=== PATIENT | male | born 1950 | race Caucasian/White ===

== ENCOUNTER → 2019-11-14 09:24 | Outpatient (CLI) | payer MEDICARE, SELFPAY ==
[2019-11-16 09:26] LABS: COVID19 Sendout Not Detected (Not Detect)
== END ==
PROVIDERS: Visit Provider Nurse Practitioner
DX: Z11.59 Encounter for screening for other viral diseases (principal)
CPT/HCPCS: 87635

== ENCOUNTER 2019-11-17 08:07 | Day surgery (SDC) | payer MEDICARE, SELFPAY ==
[2019-11-13 08:01] VITALS: BMI 28.6
[2019-11-17] VITALS (9 sets, daily range): BP systolic 135–163; BP diastolic 69–98; PULSE 69–94; RESP 11–24; TEMP 36.1–36.8; O2SAT 93–97; BMI 28.4
--- NOTE | 2019-11-17 | PATH_ITS ---
[facility] Accession Number: [id number] . 01 Material submitted: . back - T-9 BIOPSY . 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 Maturing trilineage hematopoiesis without increased blasts, or abnormal lymphoid infiltrates. Negative for carcinoma. Associated fibrosis and changes secondary to fracture also present. . [facility] 11/24/2019 1751 Local . 01 Comment: Recent workup (serum protein electrophoresis, urine protein electrophoresis and immunofixation) identified an IgG-kappa monoclonal paraprotein. Examination of the marrow on this bone biopsy reveals increased plasma cells, approximately 20%, with [place] light chain immunoglobulin excess and abnormal CD56 antigen coexpression; findings suspicious for plasma cell neoplasm. . Further workup is recommended and correlation with imaging studies and additional laboratory studies for definite diagnosis. . 01 Electronically signed: . Chidi Beckham MD, Pathologist NPI- [id number] . 01 Gross description: . T-9 BIOPSY: Received in formalin are 2 fragment(s) of romano, hard tissue measuring 1.0 x 0.3 x 0.3 cm to 0.5 x 0.3 x 0.3 cm submitted entirely in 1 cassette(s) /QBJ 11/18/2019 0854 Local . 01 Microscopic: . Microscopic examination of the biopsy reveals increased plasma cells with mature morphology, abundant cytoplasm and indistinct nucleolus. Rare binucleate plasma cells are also seen. To better evaluate those plasma cells and more accurately quantitate, immunostains were performed (see below immunohistochemistry). There is maturing trilineage hematopoiesis with granulocytes, erythroids and megakaryocytes present. Distinct lymphoid aggregates in interstitial and paratrabecular location are not appreciated, see below immunohistochemistry. . Blasts are not increased. . Background fibrosis and changes secondary to fracture also present. . . Immunohistochemistry: . CD138: Plasma cells positive, increased, approximately 20%. [place] Light Chain Immunostain: Plasma cells show kappa light chain excess, however, due to dense background staining, unequivocal kappa light chain restriction is not definetely seen. Lambda Light Chain Immunostain: Rare plasma cells positive (the predominant plasma cell population is negative). CD56: Plasma cells show abnormal CD56 coexpression. CD3: A few scattered T-lymphocytes positive. CD20: Rare scattered B-lymphocytes positive. JACINTO: Negative (nonspecific staining on rare crushed cells, overall interpreted as negative). . . * This test was developed and its performance characteristics determined by [facility]. It has not been cleared or approved by the U.S. Food and Drug Administration. The FDA has determined that such clearance or approval is not necessary. This test is used for clinical purposes. It should not be regarded as investigational or for research. . 01 Pathologist provided ICD-10: D47.2, R77.1, S32.000D, S22.000D . 01 CPT . 070493, G21954, L81104 Performed at: 01 [facility] [address] [place] [address] Suite [facility], [place], [place] [id number] MD Dominick Oliva MD Phone: [phone]
[2019-11-17] MEDS: LACTATED RINGERS 1,000 ML 42 ML IV (09:21)
--- NOTE | 2019-11-17 09:28 | PM.PREOP ---
Pre-operative Note COVID-19 COVID-19 status: Negative Result date/Date tested (Pos, Neg/Pending): 11/14/19 Interval Note History & Physical reviewed/Exam performed by Physician: Yes Changes to H&P: No
--- NOTE | 2019-11-17 10:00 | DI.RAD.S_ITS ---
PROCEDURE: XR THORACIC SPINE 3V INDICATIONS: Kyphoplasty TECHNIQUE: 12 views of the thoracic spine were acquired. COMPARISON: SNO Outside Film, MR, MR SPINE, 10/29/2019, 15:16. SNO Outside Film, CR, XR THORACIC SPINE 2 VIEWS, 10/21/2019, 8:56. SNO Outside Film, CR, XR LUMBAR SPINE 2 OR 3 VIEWS, 10/21/2019, 8:58. FINDINGS: A series of intraoperative fluoroscopy semi images demonstrate kyphoplasty in lower thoracic spine (? T9. Not labeled on images). IMPRESSION: Intraoperative fluoroscopy for kyphoplasty. Dictated by: Sandhya Viera M.D. on 11/17/2019 at 15:29 Approved by: Sandhya Viera M.D. on 11/17/2019 at 15:36
[2019-11-17] MEDS: CEFAZOLIN 2 GM/100 ML FROZ.PIGGY IV (10:04)
--- NOTE | 2019-11-17 11:17 | PM.OP.1 ---
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 He was felt that he would benefit from surgery with tumor ablation and kyphoplasty for the fracture stability. He wished to proceed. Risks and benefits of surgery were discussed and appropriate consents were obtained. Surgeon: Rio Queen Click Yes if Unassisted: Yes Anesthesia Type: General Operative Notes Findings: None Closure Type: primary Specimen(s): other (T9 vertebral biopsy) Estimated Blood Loss (mL): 5 Blood products transfused: none Procedure in detail: The patient was brought to the operating room and intubated on the table. They were then rolled over to the well-padded prone position. Time-out was performed. We confirmed positioning with two fluoroscopy views. The back was prepped and draped in the standard sterile fashion. Preoperative antibiotics were given. Using fluoroscopic guidance, the planned incision sites were infiltrated with Marcaine with epinephrine and injected down to the entry site of the bilateral pedicles of T9. A small stab incision was made and we advanced a Jamshiedi needle down the left pedicle into the vertebral body. We then made a small stab incision on the right and advanced a Jamshidi needle down the right pedicle of T9. Bone biopsies were harvested from both sides and sent to pathology. We then passed the DFine osteotome and opened it up to create a void inside the vertebral body. We then began the tumor ablation. The radiofrequency probes were placed down both pedicles to the anterior aspect and then extended forward. We then began the radiofrequency ablation until both sides reached 50? C. once this was done we then began injecting the cement. This was done with frequent fluoroscopy imaging. Cement started working posteriorly along a tract and we stopped injecting. We let this solidify for 4 minutes and then injected more cement around this area with no further posterior movement. Once we had good fill of the T9 vertebral body the injection was stopped and the trocars were removed. Final x-rays were taken. The wound was cleaned. Steri-Strips and sterile dressing were placed. Patient was rolled over, extubated, and brought to recovery without complications. Complications: none Post-operative Condition: stable Disposition: PACU Plan for aftercare: Outpatient. Activity as tolerated. Awaiting bone biopsy results and getting the patient into Oncology.
[2019-11-17] MEDS: OXYCODONE/ACETAMINOPHEN 5/325 TABLET 1 TAB PO (11:30)
--- NOTE | 2019-11-17 11:33 | SUR.OPER ---
Prone on spine table, head in foam head support, padded chest support, gel pad at knees, lower legs supported by pillows; nipples, genitalia and toes free of pressure, arms secured on gel padded arm boards at <90 degrees abduction. Tape over blanket at thigh secured to table.
[2019-11-17] MEDS: fentaNYL 100 MCG/2 ML INJ IV ×2 (11:35→11:40)
[2019-11-17] MEDS: BUPIVACAINE 0.25% W/ EPI 30 ML VIAL 60 ML INJ (11:59)
--- NOTE | 2019-11-17 12:58 | SUR.PHASEII ---
1230: Pt ready to go, ride called can not be here till after 1:00pm pt dressed and ready to go.
--- NOTE | 2019-11-17 14:53 | SUR.PHASEII ---
Late entry: friend showed up, pt left when he arrived, left in stable condition.
== END 2019-11-17 12:19 | disposition home or self-care (01) ==
PROVIDERS: PCP Nurse Practitioner; Referring Provider Nurse Practitioner; Visit Provider Orthopaedic Surgery
PROC: (CPT 22513; principal; 2019-11-17 10:15)
DX: S22.070A Wedge compression fracture of T9-T10 vertebra, initial encounter for closed fracture (principal); C79.52 Secondary malignant neoplasm of bone marrow; E11.9 Type 2 diabetes mellitus without complications; M54.9 Dorsalgia, unspecified; D47.2 Monoclonal gammopathy; R77.1 Abnormality of globulin
CPT/HCPCS: 22513; 20982; 72074; 76000; C1776; J0690; J1100; J2405; J2704; J3010

== ENCOUNTER 2023-05-20 14:03 | Emergency (ER) | payer MEDICARE, SELFPAY ==
[2023-05-20 14:10] VITALS: BP 174/85; PULSE 56; RESP 22; TEMP 36.3; O2SAT 97; BMI 24.3
--- NOTE | 2023-05-20 14:20 | PC.NURSE ---
patient's ride is [phone] [facility]
[2023-05-20 14:46] LABS: Alanine Aminotransferase 48 IU/L (<50); Albumin 3.8 g/dL (3.5-5.0); Albumin Globulin Ratio 1.1 (1.0-2.8); Alkaline Phosphatase 77 U/L (38-126); Aspartate Aminotransferase 49 IU/L (17-59); BUN Creatinine Ratio 14.8 (6-22); Bilirubin Total 0.5 mg/dL (0.2-1.3); Blood Urea Nitrogen 12 mg/dL (9-20); Calcium 8.9 mg/dL (8.4-10.2); Carbon Dioxide 28 mmol/L (22-32); Chloride 107 mmol/L (98-107); Estimated Glomerular Filt Rate > 60 mL/min (>60); Globulin 3.5 g/dL (1.7-4.1); Glucose 130 mg/dL (80-110); HEMOLYSIS < 15 (0-50); Lipase 66 U/L (23-300); Potassium 2.9 mmol/L (3.4-5.1); Sodium 141 mmol/L (137-145); Total Protein 7.3 g/dL (6.3-8.2)
[2023-05-20 15:08] LABS: Add Manual Diff / Slide Review NO; Basophils Absolute Auto 100 /uL (0-100); Basophils Percent Auto 1.1 % (0-2); Eosinophils Absolute Auto 200 /uL (0-450); Hematocrit 31.3 % (41-53); Hemoglobin 10.1 g/dL (13.5-17.5); Lymphocytes Absolute Auto 600 /uL (1100-4500); Lymphocytes Percent Auto 7.7 % (25-40); Mean Corpuscular HGB Conc 32.1 % (30-36); Mean Corpuscular Hemoglobin 27.3 PG (26-34); Mean Corpuscular Volume 84.8 fL (80-100); Monocytes Absolute Auto 900 /uL (0-900); Monocytes Percent Auto 11.1 % (3-14); Neutrophils Absolute Auto 6000 /uL (1500-7000); Neutrophils Percent Auto 77.1 % (50-75); Platelet Count 287 X10^3/uL (150-400); Red Blood Cell Count 3.69 X10^6/uL (4.5-5.9); Red Cell Distribution Width 16.9 % (11.6-14.8); White Blood Cell Count 7.7 X10^3/uL (4.5-11.0)
--- NOTE | 2023-05-20 15:23 | DI.CT.S_ITS ---
PROCEDURE: CT ABDOMEN PELVIS W CON INDICATIONS: flank pain with mulitple myleoma TECHNIQUE: After the administration of intravenous contrast, axial sections acquired from the lung bases to the pubic symphysis. Coronal and sagittal reformats were performed. For radiation dose reduction, the following was used: automated exposure control, adjustment of mA and/or kV according to patient size. COMPARISON: None. FINDINGS: Image quality: Diagnostic. Lower Chest: No significant findings. ABDOMEN: Liver: No solid mass. Gallbladder: Cholelithiasis without CT evidence of acute cholecystitis. Biliary ducts: No biliary dilation. Pancreas: No ductal dilation. Spleen: Size is within normal limits. Adrenal Glands: No adrenal nodules. Kidneys and Ureters: Obstructing 5 mm stone at the right ureterovesicular junction resulting in mild hydroureter and moderate hydronephrosis. There is a delayed right nephrogram. Significant perinephric stranding. Left kidney is normal in appearance. Stomach and Bowel: Moderate hiatal hernia. Normal colonic caliber, without significant wall thickening. Diverticulosis without evidence of acute diverticulitis. Peritoneum: No abnormal intraperitoneal fluid. No free air. Ventral Wall: No significant ventral hernia. Abdominal Nodes: No retroperitoneal or mesenteric adenopathy by size criteria. Vessels: Aorta and inferior vena cava are normal in size. Atherosclerotic vascular calcifications. PELVIS: Pelvic Organs: Unremarkable. Bladder: No bladder wall thickening, accounting for underdistention. Pelvic Nodes: No enlarged lymph nodes. Miscellaneous: Small bilateral fat containing inguinal hernias are seen. Bones: No aggressive osseous abnormality. Status post T9 vertebroplasty. Severe compression deformity of T10. Moderate compression deformities of L3 and L4. Diffusely decreased osseous mineralization. Multilevel degenerative changes of the spine. IMPRESSION: 1. Obstructing 5 mm stone at the right ureterovesicular junction. There is mild upstream hydroureter and moderate right hydronephrosis. Delayed right nephrogram with perinephric stranding. Recommend urinalysis to exclude infection. 2. Diverticulosis without evidence of acute diverticulitis. 3. Cholelithiasis without evidence of acute cholecystitis. 4. Multilevel degenerative changes of the spine with diffusely decreased osseous mineralization. Multiple vertebral body compression deformities as above which are likely chronic in etiology. Dictated by: Jesús Owens M.D. on 05/20/2023 at 16:23 Approved by: Jesús Owens M.D. on 05/20/2023 at 16:28
[2023-05-20 15:30] VITALS: BP 166/76; PULSE 67; RESP 18; O2SAT 95
--- NOTE | 2023-05-20 15:33 | PC.NURSE ---
Right flank pain since this morning with dribbling while peeing. Bladder scan shows 0ml urine in bladder. Moaning in bed due to pain. Patient denies history of kidney stones. he reports history of multiple myeloma with tumors on spine.
[2023-05-20] MEDS: MORPHINE 2 MG/ML INJ IV (15:40)
[2023-05-20] MEDS: ONDANSETRON 4 MG/2 ML INJ IV (15:40)
[2023-05-20 16:35] VITALS: BP 147/66; PULSE 61; RESP 16; O2SAT 97
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
[2023-05-20 17:10] VITALS: BP 149/77; PULSE 66; RESP 17; O2SAT 98
--- NOTE | 2023-05-20 17:35 | PC.NURSE ---
1700 Patient refuses to receive IV fluids and does not want to try to provide a urine specimen at this time. Dr. Mitchell aware. Patient does not want Oral pain medication either. he states he wants to go home and speak to his PCP tomorrow. He is aware of our desire to obtain a UA to rule out infection and continues refusal.
== END 2023-05-20 17:27 | disposition home or self-care (01) ==
PROVIDERS: Emergency Provider Emergency Medicine; PCP Nurse Practitioner
DX: N20.0 Calculus of kidney (principal)
CPT/HCPCS: 36415; 51798; 74177; 80053; 83690; 85025; 96374; 96375; 99284; J2270; J2405; Q9967

== ENCOUNTER 2024-05-11 08:10 | Emergency (ER) | payer MEDICARE, SELFPAY ==
[2024-05-11] VITALS (10 sets, daily range): BP systolic 151–180; BP diastolic 72–81; PULSE 82–90; RESP 16–31; TEMP 37.2; O2SAT 96–100; BMI 27.3
--- NOTE | 2024-05-11 08:35 | DI.RAD.S_ITS ---
PROCEDURE: XR CHEST 1V INDICATIONS: cough, sob, r/o pna TECHNIQUE: One view of the chest was acquired. COMPARISON: None. FINDINGS: Surgical changes and devices: None. Lungs and pleura: Lungs are clear. No pleural effusions or pneumothorax. Mediastinum: Mediastinal contours appear normal. Heart size is normal. Bones and chest wall: No suspicious bony lesions. Overlying soft tissues appear unremarkable. Healing bilateral rib fractures. IMPRESSION: No acute cardiopulmonary abnormality is seen. Dictated by: Toby Oliveira M.D. on 05/11/2024 at 8:45 Approved by: Toby Oliveira M.D. on 05/11/2024 at 8:45
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
--- NOTE | 2024-05-11 08:53 | DI.CT.S_ITS ---
PROCEDURE: CT ANGIO ABD/PEL GI BLEED INDICATIONS: Shortness of Breath/Dyspnea TECHNIQUE: After the administration of intravenous contrast, 2.5 mm thick sections acquired from the diaphragm to the symphysis. 10 mm maximum-intensity projection (MIP) reformats were then acquired. For radiation dose reduction, the following was used: automated exposure control. COMPARISON: [facility], CT, CT ABDOMEN PELVIS W CON, 05/20/2023, 15:28. FINDINGS: Image Quality: Diagnostic. Abdominal aorta: No aortic aneurysm or evidence of acute aortic syndrome. Mesenteric arteries: Patent without hemodynamically significant stenosis. Renal arteries: Patent without hemodynamically significant stenosis. OTHER: Lower Chest: No significant findings. Liver: No solid mass. Gallbladder: Contracted gallbladder. Calcified gallstones are present. No surrounding inflammatory changes. Biliary ducts: No biliary dilation. Pancreas: No ductal dilation. Spleen: Size is within normal limits. Adrenal Glands: No adrenal nodules. Kidneys and Ureters: No hydronephrosis. No solid mass. No complex renal cystic lesion which requires follow up. Bilateral peripelvic renal cysts. Stomach and Bowel: Small hiatal hernia. A few diverticula are seen in the colon without signs of acute diverticulitis. No extravasation of intravenous contrast material into the bowel lumen is seen on arterial or delayed images. Peritoneum: No abnormal intraperitoneal fluid. No free air. Ventral Wall: Prior umbilical hernia repair. Abdominal Nodes: No retroperitoneal or mesenteric adenopathy by size criteria. Vessels: Aorta and inferior vena cava are normal in size. PELVIS: Pelvic Organs: Prostate is enlarged. Bladder: Unremarkable. Pelvic Nodes: No enlarged lymph nodes. Miscellaneous: Small bilateral fat containing inguinal hernias. Bones: No aggressive osseous abnormality. Generalized osteopenia. Mild compression fractures at multiple levels including L3, L4, T10, and likely T11 and 12. No adjacent soft tissue edema is seen. Findings appear unchanged when compared to the CT from 05/20/2023. IMPRESSION: 1. No contrast extravasation into the bowel to suggest active GI hemorrhage. 2. Colonic diverticulosis without focal diverticulitis. Small hiatal hernia. 3. Cholelithiasis. 4. Unchanged chronic vertebral body compression fractures. Approved by: Phillip Calzada M.D. on 05/11/2024 at 10:20
--- NOTE | 2024-05-11 09:04 | PC.NURSE ---
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 +blood in stool on guiac card. type and screen drawn.
--- NOTE | 2024-05-11 09:08 | EKG_ITS ---
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
[2024-05-11 09:11] LABS: Add Manual Diff / Slide Review NO; Basophils Absolute Auto 100 /uL (0-100); Basophils Percent Auto 0.6 % (0-2); Eosinophils Absolute Auto 500 /uL (0-450); Eosinophils Percent Auto 5.8 % (2-4); Hematocrit 34.2 % (41-53); Hemoglobin 11.5 g/dL (13.5-17.5); Lymphocytes Absolute Auto 600 /uL (1100-4500); Lymphocytes Percent Auto 6.1 % (25-40); Mean Corpuscular HGB Conc 33.8 % (30-36); Mean Corpuscular Hemoglobin 28.6 PG (26-34); Mean Corpuscular Volume 84.6 fL (80-100); Monocytes Absolute Auto 600 /uL (0-900); Monocytes Percent Auto 6.4 % (3-14); Neutrophils Absolute Auto 7600 /uL (1500-7000); Neutrophils Percent Auto 81.1 % (50-75); Platelet Count 227 X10^3/uL (150-400); Red Blood Cell Count 4.03 X10^6/uL (4.5-5.9); Red Cell Distribution Width 16.3 % (11.6-14.8); White Blood Cell Count 9.3 X10^3/uL (4.5-11.0)
[2024-05-11 09:14] LABS: COVID-19 CEPHEID 4-PLEX PCR Negative (Negative); Influenza A - CEPHEID Flu A NEGATIVE (NEGATIVE); Influenza B - CEPHEID Flu B NEGATIVE (NEGATIVE); Respiratory Syncytial Virus Negative (Negative)
[2024-05-11 09:17] LABS: INR 1.1 (0.9-1.3); Prothrombin Time 12.5 SECONDS (9.4-12.5)
[2024-05-11 09:20] LABS: PTT Partial Thromboplastin Tim 34 SECONDS (25.1-36.5)
[2024-05-11] MEDS: ALBUTEROL/IPRATROPIUM 3 ML AMPUL INH (09:22)
[2024-05-11] MEDS: PANTOPRAZOLE 40 MG VIAL 80 MG IV (09:22)
[2024-05-11 09:27] LABS: Alanine Aminotransferase 25 IU/L (<50); Albumin 4.2 g/dL (3.5-5.0); Albumin Globulin Ratio 1.2 (1.0-2.8); Alkaline Phosphatase 87 U/L (38-126); Aspartate Aminotransferase 26 IU/L (17-59); Bilirubin Total 0.7 mg/dL (0.2-1.3); Blood Urea Nitrogen 11 mg/dL (9-20); Carbon Dioxide 23 mmol/L (22-32); Chloride 106 mmol/L (98-107); Creatine Kinase 66 U/L (55-170); Estimated Glomerular Filt Rate > 60 mL/min (>60); Globulin 3.5 g/dL (1.7-4.1); Glucose 120 mg/dL (80-110); HEMOLYSIS < 15 (0-50); Lipase 67 U/L (23-300); Potassium 3.7 mmol/L (3.4-5.1); Sodium 138 mmol/L (137-145); Total Protein 7.7 g/dL (6.3-8.2)
[2024-05-11 09:28] LABS: Lactate (Lactic Acid) 0.8 mmol/L (0.7-2.1)
[2024-05-11 09:38] LABS: NT-proBNP (BNP-Adult 18+) 81 pg/mL (<125); Troponin I < 0.012 ng/mL (0.01-0.034)
--- NOTE | 2024-05-11 09:38 | PC.NURSE ---
Pt wheezing throughout lung diaz. Albuterol inhaler given. Pt coughing and wheezing noted on expiration only at this time. Pt says he feels better. 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
[2024-05-11 11:09] LABS: Hematocrit 34.5 % (41-53); Hemoglobin 11.4 g/dL (13.5-17.5)
== END 2024-05-11 11:57 | disposition home or self-care (01) ==
PROVIDERS: Emergency Provider Emergency Medicine; PCP Nurse Practitioner
DX: J18.9 Pneumonia, unspecified organism (principal); K92.2 Gastrointestinal hemorrhage, unspecified; Z87.891 Personal history of nicotine dependence
CPT/HCPCS: 0241U; 36415; 71045; 74174; 80053; 82550; 83605; 83690; 83880; 84484; 85014; 85018; 85025; 85610; 85730; 86850; 86900; 86901; 93005; 96374; 99284; J2470; Q9967